=== PATIENT | male | born 1955 | race Caucasian/White ===

== ENCOUNTER 2017-07-25 13:55 | Day surgery (SDC) | payer OTHER ==
[~2017-07-25] VITALS: Ht 180.3 cm; Wt 102.1 kg
[~2017-07-25 13:55] MED LIST: ADDERALL 20 MG20 MG PO; AMBIEN5 MG PO; INVOKANA100 MG PO; LAMICTAL 100 M100 MG PO; LATUDA20 MG PO; LITHIUM CARBON450 MG PO; LYRICA 100 MG100 MG PO; METFORMIN1000 MG PO; OXYCODONE HCL15 MG PO; OXYCONTIN 10MG10 MG PO; PEPCID AC20 M2 PO; PRAVASTATIN 20M20 MG PO; SEROQUEL 25MG T25 MG PO; SEROQUEL100 MG PO; TRILEPTAL 150150 MG PO; TRILEPTAL150 MG PO; VALIUM 5MG TABLE5 MG PO; VRAYLAR1.5 MG PO; WELLBUTRIN SR100 MG PO; ZYRTEC5 M2 PO
[2017-07-25 15:00] VITALS: BP 150/77
[2017-07-25 15:26] VITALS: BP 150/77
[2017-07-25 15:27] VITALS: BP 150/77
--- NOTE | 2017-07-25 15:37 | Procedure Note ---
Procedure detail Date of procedure: 07/25/17 Anesthesiologist: Isiah Christian Complications: None Pre-procedure diagnosis: Degenerative disc disease lumbar spine multiple levels. Multilevel postlaminectomy syndrome lumbar spine. Post-procedure diagnosis: Same. Indications for procedure: Patient's a very pleasant 61-year-old white male that we've been treating for quite some time for chronic low back pain secondary to degenerative disease lumbar spine multiple levels. Lumbar postlaminar syndrome. Lumbar radiculopathy symptoms. Patient has been managed with intrathecal pain pump. He currently has morphine sulfate 30 mg/mL plus bupivacaine 30 mg/mL. His rate is currently at 7 mg per day. He seems to "well with his current rate. Patient also has spinal cord stimulator that is functional and doing very well. He presents to our procedural clinic today for intrathecal pain pump refill. Procedure detail: Details of the procedure were explained to the patient. The patient taken to procedure clinic and placed on the fluoroscopy table in the supine position. The area over the pump was cleansed using chlorhexidine as a cleansing solution. The pump was accessed with ease using a 22-gauge needle from the refill kit. 6.5 mL of solution was withdrawn and discarded appropriate. The pump was then filled with 20 mL of morphine sulfate 30 mg/mL and bupivacaine 30 mg/mL. The pump was interrogated and the rate was continued at 7 mg per day. Patient are the procedure without difficulty. There were no complications. Objective: Patient's awake alert oriented 3. In no acute distress. Flexion states lumbar spine somewhat guarded secondary to pain. Deep tendon reflexes upper lower extremities normal. Motor strength upper lower extremities normal. There is no gross sensory deficit. It is normal. Positive straight leg raise test 30 degrees bilaterally. Plan and disposition: Patient tolerated procedure without difficulty. He was discharged home. We'll see him back in 6 refill date. at [id number]
[2017-07-25 16:04] VITALS: BP 150/83
== END 2017-07-25 15:30 | disposition home or self-care (01) ==
LOC: PM 13:55
DX: M51.16 Intervertebral disc disorders with radiculopathy, lumbar region (principal); M96.1 Postlaminectomy syndrome, not elsewhere classified